=== PATIENT | female | born 1990 | race African-American/Black ===

== ENCOUNTER 2016-03-29 13:22 | Emergency (ER) | payer MEDICAID ==
[~2016-03-29 13:22] MED LIST: CEPH-460 PO; PRENATAL VITAMIN; PROM25TA5 PO
--- NOTE | 2016-03-29 14:28 | PD ---
HPI Chief Complaint Suprapubic pain and tenderness, pelvic pressure Date Seen: Mar 29, 2016 Time Seen: 14:10 Travel History International Travel<30 Days: No Contact w/Intl Traveler<30Days: No Known Affected Area: No History of Present Illness HPI 25-year-old 033 at 25 weeks and 5 days of gestation, EDC 07/07/16, patient presents to labor and delivery complaining of suprapubic pain and tenderness and pelvic pressure, she denies leakage of fluids, vaginal bleeding and contractions. She reports presence of movement. Patient also reports presence of vaginal discharge. Evaluation reveals presence of white cottage-cheese like discharge consistent with possible yeast infection. care is with Dr. Muhammad, course is unremarkable. Patient denies dysuria, reports increased frequency, no fever or chills , no nausea and vomiting. Para: 3 : 7 Miscarriage: 3 : 0 History Past Medical History Narrative Medical Denies Medical History: Denies Significant Hx Obstetric History Obstetric History Spontaneous vaginal delivery 3, spontaneous 3 Past Surgical History Narrative Surgical Denies Surgical History: No Previous Surgery Family History Narrative Family History Mother with kidney failure Social History Alcohol Use: No Tobacco Use: No Substance Abuse: No Allergies-Medications (Allergen,Severity, Reaction): Coded Allergies: No Known Allergies (Verified , 02/23/16) Home Meds Active Scripts Cephalexin (Keflex)500 Mg [id number] Mg PO Q6H #28 CAP Ref 0 Prov:Manuel Pearson II, MD 02/22/16 Promethazine (Phenergan)25 Mg Tab25 Mg PO Q6H PRN (NAUSEA OR VOMITING) #20 TAB Ref 0 Prov:Manuel Pearson II, MD 02/21/16 Reported Medications [ Vitamin] No Conflict Check Daily 01/19/16 Review of Systems Except as stated in HPI: all other systems reviewed are Neg Genitourinary: Frequency, Discharge, Other (suprapubic pain) Physical Exam Narrative GENERAL: Well-nourished, well-developed patient. SKIN: Warm and dry. HEAD: Normocephalic and atraumatic. EYES: No scleral icterus. No injection or drainage. ENT: No nasal drainage noted. Mucous membranes pink. Airway patent. NECK: Supple, trachea midline. No JVD. CARDIOVASCULAR: Regular rate and rhythm without murmurs, gallops, or rubs. RESPIRATORY: Breath sounds equal bilaterally. No accessory muscle use. BREASTS: Bilateral exam showed no masses , no retractions, no nipple discharge. ABDOMEN/GI: Abdomen soft, gravid, non-tender, bowel sounds present, no rebound, no guarding Gravid to 26weeks size Fundal Height: 26 cm GENITOURINARY: External Genitalia: intact and normal in appearance BUS glands: Normal Cervix: Closed, long, posterior, there is present of a whitish cottage cheese -like discharge, sample is sent for wet prep profile Dilatation: Close Effacement: 30% Station: -3 Presentation: Cephalic Membranes: Intact Uterine Contractions: None FHT's: Category: one Baseline: 150's Reactive: Reassuring Variability: Moderate Decels: None EXTREMITIES: No cyanosis or edema. BACK: Nontender without obvious deformity. No CVA tenderness. NEUROLOGICAL: Awake and alert. Motor and sensory grossly within normal limits. Five out of 5 muscle strength in all muscle groups. Normal speech. Data Data Vital Signs Reviewed: Yes Orders Vital Signs (Adult) .ON ADMISSION (03/29/16 14:14) ^ Labor Status (03/29/16 14:14) Urinalysis - C+S If Indicated (03/29/16 14:14) ^ Non Stress Test (03/29/16 14:14) ^ Hydration (03/29/16 14:14) Diet Regular Basic (03/29/16 Dinner) Wet Prep Profile (03/29/16 14:14) MDM Diagnosis Diagnosis: Primary Impression: 26 weeks gestation of Additional Impressions: UTI (lower urinary tract infection) Vaginal discharge during in second trimester Disposition: 01 DISCHARGE HOME Condition: Stable Additional Instructions: Urinalysis is suggestive of acute UTI, wet prep is positive for yeast infection. Patient is given ceftriaxone 2 g IV times one dose. She is discharged home with prescription for Macrobid 100 mg by mouth twice a day 7 days and miconazole vaginal suppositories 200 mg at bedtime 3 days for treatment of yeast infection. She is instructed to return to labor and delivery if increased symptoms, cramping, contractions, leakage of fluids, vaginal bleeding or decreased movement. Drink plenty of fluids. Monitor kick counts. Keep your office appointment as scheduled. Pelvic rest. Departure Forms: Tests/Procedures Sandro Moore MD Mar 29, 2016 14:28
[2016-03-29 14:33] LABS: BACTERIA, URINE MANY /hpf; BLOOD, URINE MOD (NEG); COMMENT (UR) CULTURE INDICATED; CULTURE IF INDICATED CULTURE INDICATED; GLUCOSE,URINE NEG (NEG); KETONE, URINE 10 mg/dL (NEG); MUCUS URINE MANY /lpf (OCC); NITRITE,URINE NEG (NEG); SQUAMOUS EPITHELIAL CELL URINE 5 /hpf (0-5); URINE COLOR YELLOW (YELLW/STRAW)
[2016-03-29] MEDS ORDERED: SODIUM CHLOR 0.9% 1000 ML INJ 1,000 ML IV SCH (17:00)
[2016-03-29] MEDS ORDERED: cefTRIAXone INJ 2,000 MG in SODIUM CHLORIDE 0.9% INJ 100 ML IV ONE (17:00)
== END 2016-03-29 18:06 | disposition home or self-care (01) ==
LOC: HOBED 13:22
DX: O23.42 Unspecified infection of urinary tract in pregnancy, second trimester (principal); B96.20 Unspecified Escherichia coli [E. coli] as the cause of diseases classified elsewhere; N89.8 Other specified noninflammatory disorders of vagina; Z3A.26 26 weeks gestation of pregnancy
CPT/HCPCS: 81001; 87077; 87086; 87186; 87210; 96361; 96374; 99284; J0696; J7030

== ENCOUNTER 2016-04-27 16:48 | Emergency (ER) | payer MEDICAID ==
[~2016-04-27] VITALS: Ht 175.3 cm; Wt 78.0 kg
[2016-04-27 16:53] VITALS: BP 94/61; PULSE 77; RESP 16; TEMP 98.2; O2SAT 100
[2016-04-27] MEDS ORDERED: SODIUM CHLOR 0.9% 1000 ML INJ 1,000 ML IV SCH (18:53)
[2016-04-27] MEDS ORDERED: ONDANSETRON HCL 4 MG/2 ML VIAL IVP ONE (19:00)
[2016-04-27] MEDS ORDERED: SODIUM CHLORIDE 0.9% FLUSH 5 ML FLUSH IVF PRN (19:00)
[2016-04-27 19:03] VITALS: PULSE 74; RESP 18; O2SAT 99
--- NOTE | 2016-04-27 19:19 | PD ---
HPI Chief Complaint: GI Complaint Time Seen by Provider: 19:16 Travel History International Travel<30 days: No Contact w/Intl Traveler<30days: No Traveled to known affect area: No History of Present Illness HPI The patient is a 25-year-old female who is 31 weeks and started vomiting today. She is G7, P3, A3all spontaneous abortions. She denies any diarrhea. She does have left flank pain and does have a tendency to get urinary tract infections with pregnancies. She states she normally does not get vomiting during her pregnancies. She denies any fever. She denies any abdominal pain. ON LICENSE OF [facility] Past Medical History Diminished Hearing: No Genitourinary: Yes (uti) Immunizations Current: Yes Tetanus Vaccination: < 5 Years Influenza Vaccination: Yes ?: LMP: 10/01/15 : 4 Para: 3 Miscarriage: 1 Social History Alcohol Use: No Tobacco Use: No Substance Use: No Allergies-Medications (Allergen,Severity, Reaction): Coded Allergies: No Known Allergies (Verified , 04/27/16) Reported Meds & Prescriptions Reported Meds & Active Scripts Active Zofran (Ondansetron HCl) 4 Mg Tab 4 Mg PO Q6HR PRN Macrobid (Nitrofurantoin Monoh/Nitrofur Macro) 100 Mg Cap 100 Mg PO BID 7 Days Reported [ Vitamin] DAILY Review of Systems Except as stated in HPI: all other systems reviewed are Neg Physical Exam Narrative GENERAL: The patient is alert, oriented 3 and slight apparent distress with her nausea. Her vital signs show blood pressure 94/61 but otherwise normal for . SKIN: Warm and dry. HEAD: Atraumatic. Normocephalic. EYES: Pupils equal and round. No scleral icterus. No injection or drainage. ENT: No nasal bleeding or discharge. Mucous membranes pink and moist. NECK: Trachea midline. No JVD. CARDIOVASCULAR: Regular rate and rhythm. No murmur appreciated. RESPIRATORY: No accessory muscle use. Clear to auscultation. Breath sounds equal bilaterally. GASTROINTESTINAL: Abdomen soft, non-tender, nondistended. Hepatic and splenic margins not palpable. No guarding or rebound is present. MUSCULOSKELETAL: No obvious deformities. No clubbing. No cyanosis. No edema. NEUROLOGICAL: Awake and alert. No obvious cranial nerve deficits. Motor grossly within normal limits. Normal speech. PSYCHIATRIC: Appropriate mood and affect; insight and judgment normal. Data Data Last Documented VS Vital Signs Date Time Temp Pulse Resp B/P Pulse Ox O2 Delivery O2 Flow Rate FiO2 04/27/16 20:05 72 18 114/66 100 Room Air 04/27/16 16:53 98.2 Orders Complete Blood Count With Diff (04/27/16 18:53) Comprehensive Metabolic Panel (04/27/16 18:53) Lipase (04/27/16 18:53) Urinalysis - C+S If Indicated (04/27/16 18:53) Iv Access Insert/Monitor (04/27/16 18:53) Ecg Monitoring (04/27/16 18:53) Oximetry (04/27/16 18:53) Ondansetron Inj (Zofran Inj) (04/27/16 19:00) Sodium Chlor 0.9% 1000 Ml Inj (Ns 1000 M (04/27/16 18:53) Sodium Chloride 0.9% Flush (Ns Flush) (04/27/16 19:00) Ondansetron Inj (Zofran Inj) (04/27/16 20:00) Sodium Chlor 0.9% 1000 Ml Inj (Ns 1000 M (04/27/16 20:00) Labs Laboratory Tests Test 04/27/16 19:25 White Blood Count 8.4 TH/MM3 Red Blood Count 3.62 MIL/MM3 Hemoglobin 9.3 GM/DL Hematocrit 29.2 % Mean Corpuscular Volume 80.8 FL Mean Corpuscular Hemoglobin 25.6 PG Mean Corpuscular Hemoglobin 31.7 % Concent Red Cell Distribution Width 13.2 % Platelet Count 192 TH/MM3 Mean Platelet Volume 8.8 FL Neutrophils (%) (Auto) 62.4 % Lymphocytes (%) (Auto) 26.7 % Monocytes (%) (Auto) 9.1 % Eosinophils (%) (Auto) 1.6 % Basophils (%) (Auto) 0.2 % Neutrophils # (Auto) 5.3 TH/MM3 Lymphocytes # (Auto) 2.2 TH/MM3 Monocytes # (Auto) 0.8 TH/MM3 Eosinophils # (Auto) 0.1 TH/MM3 Basophils # (Auto) 0.0 TH/MM3 CBC Comment DIFF FINAL Differential Comment Urine Color YELLOW Urine Turbidity SLIGHT Urine pH 6.5 Urine Specific [place] 1.023 Urine Protein TRACE mg/dL Urine Glucose (UA) NEG mg/dL Urine Ketones TRACE mg/dL Urine Occult Blood NEG Urine Nitrite NEG Urine Bilirubin NEG Urine Leukocyte Esterase TRACE Urine RBC 0-2 /hpf Urine WBC 3-5 /hpf Urine Squamous Epithelial 6-8 /hpf Cells Urine Amorphous Sediment MOD Urine Bacteria RARE /hpf Microscopic Urinalysis Comment CULT NOT INDICATED Sodium Level 140 MEQ/L Potassium Level 3.8 MEQ/L Chloride Level 106 MEQ/L Carbon Dioxide Level 28.3 MEQ/L Anion Gap 6 MEQ/L Blood Urea Nitrogen 7 MG/DL Creatinine 0.57 MG/DL Estimat Glomerular Filtration 158 ML/MIN Rate Random Glucose 84 MG/DL Calcium Level 8.5 MG/DL Total Bilirubin 0.3 MG/DL Aspartate Amino Transf 11 U/L (AST/SGOT) Alanine Aminotransferase 9 U/L (ALT/SGPT) Alkaline Phosphatase 76 U/L Total Protein 6.8 GM/DL Albumin 2.6 GM/DL Lipase 107 U/L MDM Medical Decision Making Medical Screen Exam Complete: Yes Emergency Medical Condition: Yes Medical Record Reviewed: Yes Interpretation(s) The CBC shows a hemoglobin of 9.3 and hematocrit of 29.2 but is otherwise unremarkable. The complete metabolic profile shows an albumin of 2.6 but is otherwise normal. The lipase is normal. The urine shows specific gravity 1.0-3 , slight turbidity, trace ketones, trace leukocyte esterase with 3-5 white cells and rare bacteria in the urine and culture is not indicated. Differential Diagnosis Gastroenteritis, hyperemesis gravidarum, dehydration, electrolyte disorder, pyelonephritis, cystitis Narrative Course The patient has hyperemesis gravidarum. She states she often gets morning sickness with her pregnancies but never lasting into the day. She may still have a urinary infection, she has borderline on the number of white cells needed to diagnose a urine infection, 3-5. She does have a trace positive leukocyte esterase. Impression: Hyperemesis gravidarum versus pyelonephritis. Plan: The patient be put on Macrobid for 7 days, increase liquids and is given Zofran for nausea. She is to follow-up with her manager strategy & account next week. Diagnosis Primary Impression: Pyelonephritis Additional Impression: Hyperemesis gravidarum Additional Instructions: As we discussed, increase liquid intake to make sure you are well-hydrated. The antibiotic is one tablet twice daily for 7 days. Zofran is for nausea and it is one tablet every 6 hours as needed for nausea. Follow-up with your manager strategy & account next week. Med/Other Pt SpecificInfo: Prescription(s) given Scripts Ondansetron (Zofran)4 Mg Tab4 Mg PO Q6HR PRN (NAUSEA OR VOMITING) #28 TAB Ref 0 Prov:Luis M Erazo MD 04/27/16 Nitrofurantoin Monohydrate Macrocrystals (Macrobid)100 Mg [id number] Mg PO BID 7 Days Ref 0 Prov:Luis M Erazo MD 04/27/16 Disposition: 01 DISCHARGE HOME Condition: Stable Luis M Erazo MD Apr 27, 2016 19:19
[2016-04-27 19:35] LABS: AUTOMATED NEUTROPHIL # 5.3 TH/MM3 (1.8-7.7); BASOPHIL % 0.2 % (0.0-2.0); BLOOD, URINE NEG (NEG); EOSINOPHIL # 0.1 TH/MM3 (0-0.4); EOSINOPHIL % 1.6 % (0.0-4.0); GLUCOSE,URINE NEG (NEG); HEMATOCRIT 29.2 % (35.0-46.0); HEMO FLAGS DIFF FINAL; KETONE, URINE TRACE mg/dL (NEG); LYMPH % 26.7 % (9.0-44.0); LYMPHOCYTE # 2.2 TH/MM3 (1.0-4.8); MEAN CELL VOLUME 80.8 FL (80.0-100.0); MEAN CORPUSCULAR HEMOGLOBIN 25.6 PG (27.0-34.0); MEAN CORPUSCULAR HGB CONC 31.7 % (32.0-36.0); MONO % 9.1 % (0.0-8.0); NEUT % 62.4 % (16.0-70.0); NITRITE,URINE NEG (NEG); PH, URINE 6.5 (5.0-8.5); PLATELET COUNT 192 TH/MM3 (150-450); RED BLOOD COUNT 3.62 MIL/MM3 (4.00-5.30); RED CELL DISTRIBUTION WIDTH 13.2 % (11.6-17.2); WHITE BLOOD COUNT 8.4 TH/MM3 (4.0-11.0)
[2016-04-27 19:40] LABS: CHLORIDE 106 MEQ/L (98-107); POTASSIUM 3.8 MEQ/L (3.5-5.1); SODIUM (NA) 140 MEQ/L (136-145)
[2016-04-27 19:41] LABS: URINE COLOR YELLOW (YELLW/STRAW)
[2016-04-27 19:42] LABS: BACTERIA, URINE RARE /hpf; COMMENT (UR) CULT NOT INDICATED; CULTURE IF INDICATED CULT NOT INDICATED; RBC, URINE 0-2 /hpf (0-3)
[2016-04-27 19:44] LABS: ANION GAP 6 MEQ/L (5-15); BICARBONATE 28.3 MEQ/L (21.0-32.0); BLOOD UREA NITROGEN 7 MG/DL (7-18)
[2016-04-27 19:47] LABS: ALT (GPT) 9 U/L (10-53); AST (GOT) 11 U/L (15-37); GLOMERULAR FILTRATION RATE 158 ML/MIN (>89)
[2016-04-27 19:49] LABS: TOTAL BILIRUBIN ADULT 0.3 MG/DL (0.2-1.0)
[2016-04-27 19:50] LABS: ALKALINE PHOSPHATASE 76 U/L (45-117)
[2016-04-27] MEDS ORDERED: ONDANSETRON HCL 4 MG/2 ML VIAL IV ONE (20:00)
[2016-04-27 20:05] VITALS: BP 114/66; PULSE 72; RESP 18; O2SAT 100
[2016-04-27] MEDS ORDERED: MACR100C2 PO (20:07)
[2016-04-27] MEDS ORDERED: ZOFR4TAB PO (20:07)
[2016-04-27] MEDS: SODIUM CHLOR 0.9% 1000 ML INJ 1,000 ML IV SCH ×2 (20:08→20:27)
== END 2016-04-27 20:44 | disposition home or self-care (01) ==
LOC: PHED 16:48
DX: N12 Tubulo-interstitial nephritis, not specified as acute or chronic (principal); O21.0 Mild hyperemesis gravidarum; Z3A.31 31 weeks gestation of pregnancy
CPT/HCPCS: 80053; 81001; 83690; 85025; 96361; 96374; 96376; 99284; J2405; J7030

== ENCOUNTER 2016-05-24 16:00 | Emergency (ER) | payer MEDICAID ==
[~2016-05-24 16:00] MED LIST changes: -CEPH-460 PO; +MACR100C2 PO; -PROM25TA5 PO; +ZOFR4TAB PO
[2016-05-24 16:18] VITALS: BP 127/65; PULSE 78
[2016-05-24] MEDS ORDERED: LACTATED RINGER'S 1000 ML INJ 1,000 ML IV SCH (16:36)
[2016-05-24] MEDS: DEXT 5%-NACL 0.45% 1000 ML INJ 1,000 ML IV SCH ×2 (17:00→19:22)
[2016-05-24] MEDS ORDERED: NIFEdipine 10 MG CAP PO SCH (17:00)
[2016-05-24] MEDS ORDERED: ACETAMINOPHEN 325 MG TAB PO ONE (17:00)
[2016-05-24 17:39] LABS: HEMATOCRIT 33.1 % (35.0-46.0); MEAN CELL VOLUME 77.9 FL (80.0-100.0); MEAN CORPUSCULAR HEMOGLOBIN 25.9 PG (27.0-34.0); MEAN CORPUSCULAR HGB CONC 33.2 % (32.0-36.0); PLATELET COUNT 180 TH/MM3 (150-450); RED BLOOD COUNT 4.24 MIL/MM3 (4.00-5.30); RED CELL DISTRIBUTION WIDTH 14.3 % (11.6-17.2); REVIEW FLAG FINAL
[2016-05-24 17:57] LABS: BICARBONATE 24.3 MEQ/L (21.0-32.0); POTASSIUM 3.5 MEQ/L (3.5-5.1)
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
[2016-05-24 19:37] LABS: KLEIHAUER BETKE (FETAL HGB) 0.5 % (0.0-0.0)
== END 2016-05-24 21:14 | disposition home or self-care (01) ==
LOC: HOBED 16:00
DX: O26.893 Other specified pregnancy related conditions, third trimester (principal); R10.9 Unspecified abdominal pain; V43.62XA Car passenger injured in collision with other type car in traffic accident, initial encounter; Y93.9 Activity, unspecified; Y92.9 Unspecified place or not applicable; Y99.9 Unspecified external cause status
CPT/HCPCS: 59025; 76816; 76819; 80048; 82731; 83030; 85027; 86850; 86900; 86901; 96361; 96374; 96376; 99284; J3010

== ENCOUNTER 2016-05-25 21:38 | Emergency (ER) | payer MEDICAID ==
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
== END 2016-05-25 22:39 | disposition home or self-care (01) ==
LOC: HOBED 21:38
DX: O26.893 Other specified pregnancy related conditions, third trimester (principal); R10.2 Pelvic and perineal pain; Z3A.35 35 weeks gestation of pregnancy
CPT/HCPCS: 99284

== ENCOUNTER 2016-05-27 23:14 | Inpatient (IN) | payer MEDICAID ==
[2016-05-27] MEDS ORDERED: LACTATED RINGER'S 1000 ML INJ 1,000 ML IV SCH (23:54)
[2016-05-27] MEDS ORDERED: LACTATED RINGER'S 1000 ML INJ 1,000 ML IV PRN (23:54)
--- NOTE | 2016-05-27 23:54 | PD ---
HPI Chief Complaint Contractions Date Seen: May 27, 2016 Travel History International Travel<30 Days: No Contact w/Intl Traveler<30Days: No Known Affected Area: No History of Present Illness HPI at 35w 2d presents with c/o contractions. Patient reports contractions as irregular. Denies LOF/VB. Good FM. Reports previous history of PTL with deliveries. Para: 3 : 7 Last Menstrual Period: May 27, 2016 History Past Medical History Medical History: Denies Significant Hx Past Surgical History Surgical History: No Previous Surgery Family History Family History: Negative Social History Alcohol Use: No Tobacco Use: No Substance Abuse: No Allergies-Medications (Allergen,Severity, Reaction): Coded Allergies: No Known Allergies (Verified , 04/27/16) Home Meds Active Scripts Ondansetron (Zofran)4 Mg Tab4 Mg PO Q6HR PRN (NAUSEA OR VOMITING) #28 TAB Ref 0 Prov:Luis M Erazo MD 04/27/16 Nitrofurantoin Monohydrate Macrocrystals (Macrobid)100 Mg [id number] Mg PO BID 7 Days Ref 0 Prov:Luis M Erazo MD 04/27/16 Reported Medications [ Vitamin] No Conflict Check Daily 01/19/16 Physical Exam AFVSS Narrative GENERAL: Well-nourished, well-developed patient. SKIN: Warm and dry. HEAD: Normocephalic and atraumatic. EYES: No scleral icterus. No injection or drainage. ENT: No nasal drainage noted. Mucous membranes pink. Airway patent. NECK: Supple, trachea midline. No JVD. CARDIOVASCULAR: Regular rate and rhythm without murmurs, gallops, or rubs. RESPIRATORY: Breath sounds equal bilaterally. No accessory muscle use. BREASTS: Bilateral exam showed no masses , no retractions, no nipple discharge. ABDOMEN/GI: Abdomen soft, non-tender, bowel sounds present, no rebound, no guarding Gravid to [-] weeks size Fundal Height: [-] GENITOURINARY: External Genitalia: intact and normal in appearance BUS glands: [-] Cervix: [-] Dilatation: [4] Effacement: [80] Station: [2] Presentation: [-] Membranes: [intact or ruptured] Uterine Contractions: [irregular contractions] FHT's: Category: [1] Baseline: [140s] Reactive: [-] Variability: [moderate] Decels: [occasional variable] EXTREMITIES: No cyanosis or edema. BACK: Nontender without obvious deformity. No CVA tenderness. NEUROLOGICAL: Awake and alert. Motor and sensory grossly within normal limits. Five out of 5 muscle strength in all muscle groups. Normal speech. Data Data Orders Ob (2e) Additional Admit Info (05/27/16 23:42) [facility] Medical Record Reviewed: Yes Interpretation(s) at 35w 2d, active labor. Plan Will admit. GBS prophylaxis. Will notify Dr. De Dios. Diagnosis Diagnosis: Primary Impression: 35 weeks gestation of Additional Impressions: Irregular uterine contractions GBS (group B Streptococcus carrier), +RV culture, currently Deanna Chambers MD May 27, 2016 23:54
[2016-05-28] VITALS (16 sets, daily range): BP systolic 102–134; BP diastolic 58–84; PULSE 64–102; RESP 16–22; TEMP 97.5–98.5
[2016-05-28] MEDS ORDERED: CITRIC ACID-SODIUM CITRATE LIQ 30 ML UDC PO SCH
[2016-05-28] MEDS ORDERED: LIDOCAINE HCL 1% 50 ML VIAL I-DERMAL PRN
[2016-05-28] MEDS ORDERED: OXYTOCIN 30 UNITS-500ML PREMIX 500 ML IV ONE
[2016-05-28] MEDS ORDERED: MINERAL OIL 10 ML VIAL TOPICAL PRN
[2016-05-28] MEDS ORDERED: SODIUM CHLORID 0.9% 500 ML INJ 500 ML IV PRN
[2016-05-28] MEDS ORDERED: PENICILLIN G POTASSIUM INJ 5,000,000 UNITS in SODIUM CHLORIDE 0.9% INJ 100 ML IV ONE ×2
[2016-05-28] MEDS ORDERED: LIDOCAINE HCL 1% 50 ML VIAL INFIL PRN
[2016-05-28] MEDS ORDERED: SODIUM CHLOR 0.9% 1000 ML INJ 1,000 ML IV PRN (00:14)
[2016-05-28 00:25] LABS: AUTOMATED NEUTROPHIL # 6.5 TH/MM3 (1.8-7.7); BASOPHIL % 0.3 % (0.0-2.0); EOSINOPHIL # 0.1 TH/MM3 (0-0.4); EOSINOPHIL % 1.3 % (0.0-4.0); HEMO FLAGS DIFF FINAL; LYMPH % 22.8 % (9.0-44.0); LYMPHOCYTE # 2.2 TH/MM3 (1.0-4.8); MEAN CELL VOLUME 78.1 FL (80.0-100.0); MEAN CORPUSCULAR HEMOGLOBIN 25.6 PG (27.0-34.0); MEAN CORPUSCULAR HGB CONC 32.9 % (32.0-36.0); MONO % 7.6 % (0.0-8.0); PLATELET COUNT 174 TH/MM3 (150-450); RED BLOOD COUNT 3.72 MIL/MM3 (4.00-5.30); WHITE BLOOD COUNT 9.6 TH/MM3 (4.0-11.0)
[2016-05-28 00:38] LABS: AMPHETAMINE, URINE NEG (NEG); BARBITURATES, URINE NEG (NEG); COCAINE, URINE NEG (NEG)
[2016-05-28 00:39] LABS: BACTERIA, URINE RARE /hpf; BLOOD, URINE SMALL (NEG); GLUCOSE,URINE NEG (NEG); KETONE, URINE 40 mg/dL (NEG); MUCUS URINE FEW /lpf (OCC); NITRITE,URINE NEG (NEG); PH, URINE 6.5 (5.0-8.5); SQUAMOUS EPITHELIAL CELL URINE 13 /hpf (0-5); TRANSITIONAL EPI CELLS, URINE <1 /hpf; URINE COLOR YELLOW (YELLW/STRAW)
[2016-05-28 00:41] LABS: COMMENT (UR) CULTURE INDICATED; CULTURE IF INDICATED CULTURE INDICATED
--- NOTE | 2016-05-28 02:48 | PD.OB.DELI ---
Delivery Date: May 28, 2016 Anesthesia: None Episiotomy: None Vaginal Delivery: Normal, Spontaneous Presentation: Occiput anterior Nuchal Cord: None Delayed cord clamping (45 sec): Yes : Female, Single One Minute : 8 Five Minute : 9 Weight: 5# 2 oz Infant Care: Suctioned, Spontaneous crying, Responded to stimulation Placenta: Spontaneous delivery, Intact, 3 vessel cord Laceration: No lacerations Anthony De Dios MD May 28, 2016 02:47
--- NOTE | 2016-05-28 02:54 | HHI.DCPOC ---
Discharge Care Plan Diagnosis: (1) Spontaneous vaginal delivery Report Symptoms to Your Doctor -Temperate above 100.5 degrees -Redness, of incision or excessive or foul smelling drainage -Unusual pain or calf pain -Increased vaginal bleeding -Painful or difficulty urinating -Feelings of extreme sadness or anxiety after 2 weeks Goals to Promote Your Health * To prevent worsening of your condition and complications * To maintain your health at the optimal level Directions to Meet Your Goals Take your medications as prescribed Follow your dietary instruction Follow activity as directed Ensure plenty of rest for recovery Drink fluids for hydration Keep your appointments as scheduled Take your immunizations and boosters as scheduled If your symptoms worsen call your PCP, if no PCP go to Urgent Care Center or Emergency Room Smoking is Dangerous to Your Health. Avoid second hand smoke Call the 24-hour crisis hotline for domestic abuse at Anthony De Dios MD May 28, 2016 02:54
[2016-05-28] MEDS ORDERED: DOCUSATE SODIUM 50 MG/SENNA 8.6 MG TAB PO PRN (03:00)
[2016-05-28] MEDS ORDERED: SODIUM CHLORIDE 0.9% FLUSH 5 ML FLUSH IV PRN (03:00)
[2016-05-28] MEDS ORDERED: ACETAMINOPHEN 325 MG TAB PO PRN (03:00)
[2016-05-28] MEDS ORDERED: ALUMINUM/MAGNESIUM/SIMETH 30 ML CUP PO PRN (03:00)
[2016-05-28] MEDS ORDERED: ZOLPIDEM TARTRATE 5 MG TAB PO PRN (03:00)
[2016-05-28] MEDS ORDERED: oxyCODONE/ACETAMINOPHEN 5 MG/325 MG TAB PO PRN ×2 (03:00)
[2016-05-28] MEDS ORDERED: ONDANSETRON ODT 4 MG TAB PO PRN (03:00)
[2016-05-28] MEDS ORDERED: WITCH HAZEL 50%/GLYCERIN 12.5% 40 PAD JAR TOPICAL PRN (03:00)
[2016-05-28] MEDS ORDERED: BENZOCAINE 20% TOPICAL SPRAY 60 ML CAN TOPICAL PRN (03:00)
[2016-05-28] MEDS: IBUPROFEN 600 MG TAB PO PRN ×3 (03:33→23:50)
[2016-05-28] MEDS ORDERED: PENICILLIN G POTASSIUM INJ 2,500,000 UNITS in SODIUM CHLORIDE 0.9% INJ 100 ML IV SCH (04:00)
[2016-05-28] MEDS ORDERED: SODIUM CHLORIDE 0.9% FLUSH 5 ML FLUSH IV SCH (09:00)
--- NOTE | 2016-05-28 09:13 | HHI.OB ---
Subjective Remarks pain controlled, mod lochia, bianka po, +void/flatus Objective Vitals/I&O Vital Signs Date Time Temp Pulse Resp B/P Pulse Ox O2 Delivery O2 Flow Rate FiO2 05/28/16 08:05 102/58 05/28/16 08:05 97.5 64 16 05/28/16 08:00 97.5 16 102/58 05/28/16 04:45 69 116/71 05/28/16 04:45 98.1 22 05/28/16 04:16 70 126/84 05/28/16 04:15 18 05/28/16 04:00 70 118/75 05/28/16 03:47 73 123/72 05/28/16 03:45 18 05/28/16 03:43 70 121/80 05/28/16 03:15 98.5 05/28/16 03:00 20 05/28/16 02:15 20 05/28/16 02:02 102 134/64 05/28/16 01:15 20 05/28/16 00:25 18 05/28/16 00:16 71 128/74 Objective Remarks GENERAL: Well-nourished, well-developed patient. CARDIOVASCULAR: Regular rate and rhythm without murmurs, gallops, or rubs. RESPIRATORY: Breath sounds equal bilaterally. No accessory muscle use. ABDOMEN/GI: Abdomen soft, non-tender. Fundus: Firm, non-tender at umbilicus. GENITOURINARY: Light to moderate bleeding. EXTREMITIES: No cyanosis or edema, non-tender, without signs of DVT. Medications and IVs Current Medications Medications (Trade) Dose Ordered Sig/Pedro Route Start Time Stop Time Status Last Admin (NS Flush) 2 ml BID IV 05/28/16 09:00 (NS Flush) 2 ml UNSCH PRN IV 05/28/16 03:00 (Tylenol) 650 mg Q4H PRN PO 05/28/16 03:00 (Motrin) 600 mg Q6H PRN PO 05/28/16 03:00 05/28/16 03:33 (Percocet 5-325 Mg) 1 tab Q4H PRN PO 05/28/16 03:00 (Percocet 5-325 Mg) 2 tab Q4H PRN PO 05/28/16 03:00 05/28/16 04:46 (Americaine 20% Top Spr) 1 spray Q4H PRN TOPICAL 05/28/16 03:00 05/28/16 04:45 (Tucks Pads) 1 applic QID PRN TOPICAL 05/28/16 03:00 05/28/16 04:45 (Leslie-Colace) 2 tab Q12H PRN PO 05/28/16 03:00 (Ambien) 5 mg HS PRN PO 05/28/16 03:00 (M-M-R Ii Inj) 0.5 ml ONCE ONCE SQ 05/28/16 16:00 05/28/16 16:01 (Boostrix Inj) 0.5 ml ONCE ONCE IM 05/28/16 16:00 05/28/16 16:01 (Mag-Al Plus Susp Liq) 15 ml Q8H PRN PO 05/28/16 03:00 (Zofran Odt) 4 mg Q6H PRN PO 05/28/16 03:00 Assessment/Plan Problem List: (1) Spontaneous vaginal delivery Plan: routine pp care baby in NICU Suzi Muhammad MD May 28, 2016 09:13
[2016-05-28 13:55] LABS: RAPID PLASMA REAGIN SCREEN NON-REACTIVE (NON-REACTVE)
[2016-05-28] MEDS ORDERED: DIPHTH/TETANUS/ACEL PERTUSSIS (BOOSTER) 0.5 ML VIAL/PFS IM ONE (16:00)
[2016-05-28] MEDS ORDERED: MEASLES, MUMPS, RUBELLA VACCINE 0.5 ML VIAL SQ ONE (16:00)
[2016-05-29] MEDS: IBUPROFEN 600 MG TAB PO PRN ×2 (08:55→23:33)
[2016-05-29] MEDS ORDERED: OXYC1TAB63 PO (16:48)
[2016-05-29] MEDS ORDERED: IBUP-232 PO (16:48)
--- NOTE | 2016-05-29 16:51 | HHI.DS ---
Admission Date May 27, 2016 at 23:45 Discharge Date: May 30, 2016 Admitting Diagnosis IUP@35+wk, Labor Diagnosis: Delivery Date: May 28, 2016 Vaginal Delivery: Normal : Female, Single Brief History at 35w 2d presents with c/o contractions. Patient reports contractions as irregular. Denies LOF/VB. Good FM. Reports previous history of PTL with deliveries. Hospital Course pt presented in PTL, she had an uncomplicated . By PPD 2, pt was voiding and bianka po and stable for d/c home. Pt Condition on Discharge: Stable Discharge Disposition: Discharge Home Discharge Instructions Diet Instructions: As Tolerated, No Restrictions Activities You Can Perform: Shower Only-No Bath Activities to Avoid: Prolonged Standing, Strenuous Activity, Driving, Sexual Activity Suzi Muhammad MD May 29, 2016 16:51
--- NOTE | 2016-05-29 16:52 | HHI.OB ---
Subjective Post Day: 1 Remarks pain controlled, mod lochia, bianka po, +void, flatus Objective Objective Remarks GENERAL: Well-nourished, well-developed patient. CARDIOVASCULAR: Regular rate and rhythm without murmurs, gallops, or rubs. RESPIRATORY: Breath sounds equal bilaterally. No accessory muscle use. ABDOMEN/GI: Abdomen soft, non-tender. Fundus: Firm, non-tender at umbilicus. GENITOURINARY: Light to moderate bleeding. EXTREMITIES: No cyanosis or edema, non-tender, without signs of DVT. Medications and IVs Current Medications Medications (Trade) Dose Ordered Sig/Pedro Route Start Time Stop Time Status Last Admin (NS Flush) 2 ml BID IV 05/28/16 09:00 (NS Flush) 2 ml UNSCH PRN IV 05/28/16 03:00 (Tylenol) 650 mg Q4H PRN PO 05/28/16 03:00 05/29/16 10:47 (Motrin) 600 mg Q6H PRN PO 05/28/16 03:00 05/29/16 08:55 (Percocet 5-325 Mg) 1 tab Q4H PRN PO 05/28/16 03:00 05/28/16 12:17 (Percocet 5-325 Mg) 2 tab Q4H PRN PO 05/28/16 03:00 05/28/16 04:46 (Americaine 20% Top Spr) 1 spray Q4H PRN TOPICAL 05/28/16 03:00 05/28/16 04:45 (Tucks Pads) 1 applic QID PRN TOPICAL 05/28/16 03:00 05/28/16 04:45 (Leslie-Colace) 2 tab Q12H PRN PO 05/28/16 03:00 (Ambien) 5 mg HS PRN PO 05/28/16 03:00 (Mag-Al Plus Susp Liq) 15 ml Q8H PRN PO 05/28/16 03:00 (Zofran Odt) 4 mg Q6H PRN PO 05/28/16 03:00 Assessment/Plan Problem List: (1) Spontaneous vaginal delivery Plan: routine pp care d/c home in Suzi Bro MD May 29, 2016 16:52
[2016-05-30] MEDS: IBUPROFEN 600 MG TAB PO PRN (08:13)
[2016-05-31 14:03] LABS: BATH SALTS (MDPV) UR NEG (NEG); ECSTASY (MDMA) UR NEG (NEG); HEROIN (6-ACETYLMORPHINE) UR NEG (NEG); K2 SPICE UR NEG (NEG); OBMETHADONE UR NEG (NEG); PHENCYCLIDINE URINE NEG (NEG)
[2016-05-31 14:04] LABS: OXYCODONE (PERCODAN) NEG (NEG)
== END 2016-05-30 11:58 | disposition home or self-care (01) | DRG 775 ==
LOC: HOBED 23:14 → H2EA 23:45 → H1EA 05-28 04:29
PROVIDERS: ADMIT Obstetrics & Gynecology; ATTEND Obstetrics & Gynecology
PROC: 10E0XZZ Delivery of Products of Conception, External Approach (ICD-10-PCS; principal; 2016-05-28)
DX: O60.14X0 Preterm labor third trimester with preterm delivery third trimester, not applicable or unspecified (principal); O76 Abnormality in fetal heart rate and rhythm complicating labor and delivery; O99.824 Streptococcus B carrier state complicating childbirth; Z37.0 Single live birth; Z3A.35 35 weeks gestation of pregnancy
CPT/HCPCS: 80307; 81001; 85025; 86592; 87086; 90715; 99285; G0481; J2540; J7120

== ENCOUNTER 2016-08-16 07:56 | Emergency (ER) | payer MEDICAID ==
[~2016-08-16] VITALS: Ht 175.3 cm; Wt 72.0 kg
[~2016-08-16 07:56] MED LIST changes: +IBUP-232 PO; -MACR100C2 PO; +OXYC1TAB63 PO; -ZOFR4TAB PO
[2016-08-16 07:59] VITALS: BP 106/58; PULSE 78; RESP 15; TEMP 98.2; O2SAT 99
[2016-08-16 08:15] VITALS: BP 118/64; PULSE 61; RESP 18; TEMP 98.2; O2SAT 100
[2016-08-16 08:31] VITALS: BP 118/64; PULSE 61; RESP 18; TEMP 98.3; O2SAT 100
[2016-08-16 09:00] LABS: AUTOMATED NEUTROPHIL # 2.7 TH/MM3 (1.8-7.7); BASOPHIL % 0.3 % (0.0-2.0); EOSINOPHIL # 0.1 TH/MM3 (0-0.4); EOSINOPHIL % 2.2 % (0.0-4.0); HEMATOCRIT 31.3 % (35.0-46.0); HEMO FLAGS DIFF FINAL; LYMPH % 32.6 % (9.0-44.0); LYMPHOCYTE # 1.6 TH/MM3 (1.0-4.8); MEAN CELL VOLUME 73.6 FL (80.0-100.0); MEAN CORPUSCULAR HEMOGLOBIN 22.5 PG (27.0-34.0); MEAN CORPUSCULAR HGB CONC 30.5 % (32.0-36.0); MONO % 10.6 % (0.0-8.0); NEUT % 54.3 % (16.0-70.0); PLATELET COUNT 208 TH/MM3 (150-450); RED BLOOD COUNT 4.25 MIL/MM3 (4.00-5.30); RED CELL DISTRIBUTION WIDTH 16.4 % (11.6-17.2)
[2016-08-16 09:06] LABS: BACTERIA, URINE OCC /hpf; BLOOD, URINE NEG (NEG); COMMENT (UR) CULT NOT INDICATED; CULTURE IF INDICATED CULT NOT INDICATED; GLUCOSE,URINE NEG (NEG); HYALINE CAST, URINE 4 /lpf (RARE); KETONE, URINE NEG (NEG); MUCUS URINE MOD /lpf (OCC); NITRITE,URINE NEG (NEG); PH, URINE 5.5 (5.0-8.5); SQUAMOUS EPITHELIAL CELL URINE 7 /hpf (0-5); URINE COLOR YELLOW (YELLW/STRAW)
[2016-08-16 09:25] LABS: ANION GAP 6 MEQ/L (5-15); BICARBONATE 23.8 MEQ/L (21.0-32.0); BLOOD UREA NITROGEN 10 MG/DL (7-18); CHLORIDE 110 MEQ/L (98-107); GLOMERULAR FILTRATION RATE 106 ML/MIN (>89); POTASSIUM 3.6 MEQ/L (3.5-5.1); SODIUM (NA) 140 MEQ/L (136-145)
[2016-08-16 09:30] LABS: CREATINE KINASE 116 U/L (26-192)
[2016-08-16 09:43] LABS: CKMB 0.7 NG/ML (0.5-3.6)
--- NOTE | 2016-08-16 09:50 | RADRPT ---
EXAM DATE/TIME: 08/16/2016 08:40 [place] COMPARISON: No previous studies available for comparison. INDICATIONS : Chest pain for 2 days. MEDICAL HISTORY : None. SURGICAL HISTORY : None. ENCOUNTER: Initial ACUITY: 2 days PAIN SCORE: 7/10 LOCATION: Bilateral chest FINDINGS: Portable AP view of the chest demonstrates a normal-sized cardiac silhouette. No effusion, consolidat ion, or pneumothorax is visualized. The bones and soft tissues demonstrate no acute abnormality. CONCLUSION: No acute cardiopulmonary abnormality is identified. Anthony Low MD on August 16, 2016 at 9:42 Board Certified Radiologist. This report was verified electronically.
[2016-08-16 09:59] VITALS: BP 105/58; PULSE 56; RESP 18; O2SAT 100
--- NOTE | 2016-08-16 10:54 | PD ---
HPI Chief Complaint: Chest Pain Time Seen by Provider: 10:36 Travel History International Travel<30 days: No Contact w/Intl Traveler<30days: No Traveled to known affect area: No History of Present Illness HPI The patient was seen and examined in the presence of the nurse. This patient complains of chest pain. Location is upper central chest. Feels like a pressure. Duration 2 days. No injury. No alleviating factors. Not short of breath. Symptoms severity is moderate. PFSH Past Medical History Medical History: Denies Significant Hx Diminished Hearing: No Genitourinary: Yes (uti) Immunizations Current: Yes ?: Unknown LMP: 07/25/2016 : 4 Para: 3 Miscarriage: 1 Past Surgical History Surgical History: No Previous Surgery Social History Alcohol Use: No Tobacco Use: No Substance Use: No Allergies-Medications (Allergen,Severity, Reaction): Coded Allergies: No Known Allergies (Verified , 08/16/16) Reported Meds & Prescriptions Reported Meds & Active Scripts Active Oxycodone-Acetaminophen 5-325 mg Tab 1 Tab PO Q4H PRN Ibuprofen 600 Mg Tab 600 Mg PO Q6H PRN Reported [ Vitamin] DAILY Review of Systems General / Constitutional: No: Fever Eyes: No: Visual changes HENT: No: Headaches Cardiovascular: Positive: Chest Pain or Discomfort Respiratory: No: Shortness of Breath Gastrointestinal: No: Abdominal Pain Genitourinary: No: Dysuria Musculoskeletal: No: Pain Skin: No Rash Neurologic: No: Weakness Psychiatric: No: Depression Endocrine: No: Polydipsia Hematologic/Lymphatic: No: Easy Bruising Physical Exam Narrative GENERAL: Well-nourished, well-developed patient in no apparent distress. SKIN: Focused skin assessment reveals no rash and nodules. Skin is Warm and dry. HEAD: Atraumatic. Normocephalic. EYES: Pupils equal and round. No scleral icterus. No injection or drainage. ENT: No nasal bleeding or discharge. Mucous membranes pink and moist. NECK: Trachea midline. No JVD. CARDIOVASCULAR: Regular rate and rhythm. No murmur appreciated. RESPIRATORY: No accessory muscle use. Clear to auscultation. Breath sounds equal bilaterally. GASTROINTESTINAL: Abdomen soft, non-tender, nondistended. Hepatic and splenic margins not palpable. MUSCULOSKELETAL: No obvious deformities. No clubbing. No cyanosis. No edema. Has chest wall tenderness NEUROLOGICAL: Awake and alert. No obvious cranial nerve deficits. Motor grossly within normal limits. Normal speech. PSYCHIATRIC: Appropriate mood and affect; insight and judgment normal. Data Data Last Documented VS Vital Signs Date Time Temp Pulse Resp B/P Pulse Ox O2 Delivery O2 Flow Rate FiO2 08/16/16 09:59 56 18 105/58 100 Room Air 08/16/16 08:31 98.3 Orders Electrocardiogram (08/16/16 08:27) Complete Blood Count With Diff (08/16/16 08:27) Basic Metabolic Panel (Bmp) (08/16/16 08:27) Ckmb (Isoenzyme) Profile (08/16/16 08:27) Troponin I (08/16/16 08:27) Chest, Single Ap (08/16/16 08:27) Iv Access Insert/Monitor (08/16/16 08:27) Ecg Monitoring (08/16/16 08:27) Oxygen Administration (08/16/16 08:27) Oximetry (08/16/16 08:27) Urinalysis - C+S If Indicated (08/16/16 08:27) Ed Urine Pregnancytest Poc (08/16/16 08:27) CKMB (08/16/16 08:25) CKMB% (08/16/16 08:25) Labs Laboratory Tests Test 08/16/16 08/16/16 08:25 08:40 White Blood Count 5.0 TH/MM3 Red Blood Count 4.25 MIL/MM3 Hemoglobin 9.6 GM/DL Hematocrit 31.3 % Mean Corpuscular Volume 73.6 FL Mean Corpuscular Hemoglobin 22.5 PG Mean Corpuscular Hemoglobin 30.5 % Concent Red Cell Distribution Width 16.4 % Platelet Count 208 TH/MM3 Mean Platelet Volume 9.6 FL Neutrophils (%) (Auto) 54.3 % Lymphocytes (%) (Auto) 32.6 % Monocytes (%) (Auto) 10.6 % Eosinophils (%) (Auto) 2.2 % Basophils (%) (Auto) 0.3 % Neutrophils # (Auto) 2.7 TH/MM3 Lymphocytes # (Auto) 1.6 TH/MM3 Monocytes # (Auto) 0.5 TH/MM3 Eosinophils # (Auto) 0.1 TH/MM3 Basophils # (Auto) 0.0 TH/MM3 CBC Comment DIFF FINAL Differential Comment Sodium Level 140 MEQ/L Potassium Level 3.6 MEQ/L Chloride Level 110 MEQ/L Carbon Dioxide Level 23.8 MEQ/L Anion Gap 6 MEQ/L Blood Urea Nitrogen 10 MG/DL Creatinine 0.80 MG/DL Estimat Glomerular Filtration 106 ML/MIN Rate Random Glucose 78 MG/DL Calcium Level 8.5 MG/DL Total Creatine Kinase 116 U/L Creatine Kinase MB 0.7 NG/ML Troponin I LESS THAN 0.02 NG/ML Urine Color YELLOW Urine Turbidity HAZY Urine pH 5.5 Urine Specific [place] 1.029 Urine Protein TRACE mg/dL Urine Glucose (UA) NEG mg/dL Urine Ketones NEG mg/dL Urine Occult Blood NEG Urine Nitrite NEG Urine Bilirubin NEG Urine Urobilinogen LESS THAN 2.0 MG/DL Urine Leukocyte Esterase SMALL Urine RBC LESS THAN 1 /hpf Urine WBC 2 /hpf Urine Squamous Epithelial 7 /hpf Cells Urine Bacteria OCC /hpf Urine Hyaline Casts 4 /lpf Urine Mucus MOD /lpf Microscopic Urinalysis Comment CULT NOT INDICATED MDM Medical Decision Making Medical Screen Exam Complete: Yes Emergency Medical Condition: Yes Medical Record Reviewed: Yes Differential Diagnosis Differential diagnosis includes IN, angina, pericarditis, pleurisy, GERD, anxiety. Narrative Course I have reviewed the patient's electronic medical record. IV placed I reviewed the EKG which is normal I reviewed the chest x-ray which is normal Extended cardiac monitoring shows sinus rhythm without ectopy CBC is normal Metabolic profile is normal CK is normal Troponin is normal Coagulation studies are normal Patient has chest wall pain and will not require inpatient evaluation or urgent stress testing. Diagnosis Primary Impression: Musculoskeletal chest pain Additional Instructions: The patient was advised to follow up with their physician and return if they worsen. Med/Other Pt SpecificInfo: Other Disposition: 01 DISCHARGE HOME Condition: Stable Dane Alegre MD Aug 16, 2016 10:54
[2016-08-16 11:04] VITALS: BP 103/59
--- NOTE | 2016-08-16 11:19 | EKG ---
Date Performed: 08/16/2016 Time Performed: 08:13:03 PTAGE: 26 years EKG: Sinus rhythm NORMAL ECG PREVIOUS TRACING : 11/18/2014 08.16 Compared to prior tracing no significant change DOCTOR: Frederick Beaver Interpretating Date/Time 08/16/2016 11:18:19
== END 2016-08-16 11:07 | disposition home or self-care (01) ==
LOC: NEPE 07:56
DX: M79.1 Myalgia (principal)
CPT/HCPCS: 71010; 80048; 81001; 82550; 82552; 84484; 84703; 85025; 93005; 99285

== ENCOUNTER 2016-09-15 12:42 | Emergency (ER) | payer MEDICAID ==
[~2016-09-15] VITALS: Ht 175.3 cm; Wt 73.0 kg
[2016-09-15 12:44] VITALS: BP 109/67; PULSE 70; RESP 20; TEMP 98.1; O2SAT 100
[2016-09-15] MEDS ORDERED: ONDANSETRON ODT 4 MG TAB PO ONE (14:00)
[2016-09-15] MEDS ORDERED: KETOROLAC TROMETHAMINE 60 MG/2 ML (IM) VIAL IM ONE (14:00)
[2016-09-15] MEDS ORDERED: ONDA4TAB7 SL (14:02)
--- NOTE | 2016-09-15 14:02 | PD ---
HPI Chief Complaint: GI Complaint Time Seen by Provider: 13:34 Travel History International Travel<30 days: No Contact w/Intl Traveler<30days: No Traveled to known affect area: No History of Present Illness HPI To 26 year-old woman presents emergency department complaining of that she started getting some headache last night and then developed some stomach upset this morning. She took [id number] Excedrin which really help with her headache. She gets headaches but this is worse than she normally gets it. She otherwise has been feeling generally well and healthy. No other complaints. History Past Medical History Medical History: Denies Significant Hx LMP: Just had a baby and my period is irregular : 4 Para: 3 Past Surgical History Surgical History: No Previous Surgery Social History Alcohol Use: No Tobacco Use: No Allergies-Medications (Allergen,Severity, Reaction): Coded Allergies: No Known Allergies (Verified , 08/16/16) Reported Meds & Prescriptions Reported Meds & Active Scripts Active Oxycodone-Acetaminophen 5-325 mg Tab 1 Tab PO Q4H PRN Ibuprofen 600 Mg Tab 600 Mg PO Q6H PRN Reported [ Vitamin] DAILY Review of Systems Except as stated in HPI: all other systems reviewed are Neg Physical Exam Narrative GENERAL: Well-appearing 26 year-old woman, no acute distress. SKIN: Focused skin assessment warm/dry. HEAD: Atraumatic. Normocephalic. EYES: Pupils equal and round. No scleral icterus. No injection or drainage. ENT: No nasal bleeding or discharge. Mucous membranes pink and moist. NECK: Trachea midline. No JVD. CARDIOVASCULAR: Regular rate and rhythm. No murmur appreciated. RESPIRATORY: No accessory muscle use. Clear to auscultation. Breath sounds equal bilaterally. GASTROINTESTINAL: Abdomen soft, non-tender, nondistended. Hepatic and splenic margins not palpable. MUSCULOSKELETAL: No obvious deformities. No clubbing. No cyanosis. No edema. NEUROLOGICAL: Awake and alert. No obvious cranial nerve deficits. Motor grossly within normal limits. Normal speech. PSYCHIATRIC: Appropriate mood and affect; insight and judgment normal. Data Data Last Documented VS Vital Signs Date Time Temp Pulse Resp B/P Pulse Ox O2 Delivery O2 Flow Rate FiO2 09/15/16 12:44 98.1 70 20 109/67 100 Room Air Orders Ed Urine Pregnancytest Poc (09/15/16 13:46) Ketorolac Inj (Toradol Inj) (7/1/17 14:00) Ondansetron Odt (Zofran Odt) (09/15/16 14:00) MDM Medical Decision Making Medical Screen Exam Complete: Yes Emergency Medical Condition: Yes Differential Diagnosis Headache and upset stomach viral syndrome, migraine, other Narrative Course Medical decision making Is a 26 year-old woman presents emergent from feeling sick with the headache and some vomiting. She looks well. She is a benign abdominal exam. She wants a work note. I don't see any evidence of significant pathology. We'll check a test. She states she been getting worse headaches that she got her Implanon. Diagnosis Primary Impression: Headache Additional Instructions: Take Zofran if he needed for nausea or vomiting. Return to the emergency department for any worsening abdominal pain, worsening headache, or any other new or worsening symptoms. Med/Other Pt SpecificInfo: Prescription(s) given Scripts Ondansetron Odt 4 Mg Tab4 Mg SL Q8HR PRN (Nausea/Vomiting) #12 TAB Prov:Vinnie Morel MD 09/15/16 Disposition: 01 DISCHARGE HOME Condition: Stable Vinnie Morel MD Sep 15, 2016 14:02
== END 2016-09-15 14:14 | disposition home or self-care (01) ==
LOC: NEPD 12:42
DX: R51 Headache (principal)
CPT/HCPCS: 84703; 96372; 99284; J1885

== ENCOUNTER 2016-09-25 12:12 | Emergency (ER) | payer MEDICAID ==
[~2016-09-25] VITALS: Ht 175.3 cm; Wt 73.0 kg
[~2016-09-25 12:12] MED LIST changes: +ONDA4TAB7 SL
[2016-09-25 12:14] VITALS: BP 113/77; PULSE 82; RESP 18; TEMP 98.4; O2SAT 100
--- NOTE | 2016-09-25 12:22 | PD ---
Physical Exam Time Seen by Provider: 12:21 Narrative 26 y/o female here for evaluation of 2 days hx of lower back pain, nausea, vomiting. Vital signs reviewed. Seen at triage desk. Awaiting bed placement. Data Data Last Documented VS Vital Signs Date Time Temp Pulse Resp B/P Pulse Ox O2 Delivery O2 Flow Rate FiO2 09/25/16 12:14 98.4 82 18 113/77 100 Room Air [facility] Medical Record Reviewed: Yes Supervised Visit with GENNARO: [place] Sep 25, 2016 12:22
[2016-09-25] MEDS ORDERED: SODIUM CHLOR 0.9% 1000 ML INJ 1,000 ML IV SCH (12:36)
[2016-09-25 12:38] VITALS: RESP 16; O2SAT 99
[2016-09-25] MEDS ORDERED: SODIUM CHLORIDE 0.9% FLUSH 10 ML FLUSH IV FLUSH PRN (12:45)
[2016-09-25] MEDS ORDERED: KETOROLAC TROMETHAMINE 30 MG/ML (IVP) VIAL IVP ONE (12:45)
[2016-09-25] MEDS ORDERED: MORPHINE SULFATE 4 MG/ML INJ IV PUSH ONE (12:45)
[2016-09-25] MEDS ORDERED: ONDANSETRON HCL 4 MG/2 ML VIAL IVP ONE (12:45)
--- NOTE | 2016-09-25 12:46 | PD ---
HPI Chief Complaint: GI Complaint Time Seen by Provider: 12:27 Travel History International Travel<30 days: No Contact w/Intl Traveler<30days: No Traveled to known affect area: No History of Present Illness HPI The patient is a 26-year-old [place] female who presents emergency department for 2 days of lower back pain with nausea and one episode of vomiting. The patient's pain started yesterday, is located lower aspect of her back, is president worse, but is worse with certain types of movement. She also complains one episode of nausea with vomiting. The patient's last menstrual cycle was at the beginning of September, was abnormal with minimal spotting , however, notes abnormal menstrual cycle since she had an implanted control placed several months ago. The patient is AB 3. The patient denies any dysuria, frequency, urgency, vaginal discharge, or vaginal bleeding. She does note nausea with one episode of vomiting, denies any diarrhea or constipation. The patient's last normal bowel movement was yesterday. Symptoms are moderate, slightly exacerbated by activity, there are no current alleviating factors. She denies any assisted fever, chills, or sweats. PFSH Past Medical History Hx Anticoagulant Therapy: No Cardiovascular Problems: No Chemotherapy: No Cerebrovascular Accident: No Diabetes: No Diminished Hearing: No Genitourinary: Yes (uti) Respiratory: No Immunizations Current: Yes Tetanus Vaccination: < 5 Years Influenza Vaccination: Yes ?: Not LMP: 09/15/16 : 7 Para: 4 Miscarriage: 3 Past Surgical History Surgical History: No Previous Surgery Hysterectomy: No Social History Alcohol Use: No Tobacco Use: No Substance Use: No (PT DENIES) Allergies-Medications (Allergen,Severity, Reaction): Coded Allergies: No Known Allergies (Verified , 09/25/16) Reported Meds & Prescriptions Reported Meds & Active Scripts Active No Active Prescriptions or Reported Medications Review of Systems Except as stated in HPI: all other systems reviewed are Neg General / Constitutional: No: Fever Cardiovascular: No: Chest Pain or Discomfort Respiratory: No: Shortness of Breath Gastrointestinal: Positive: Nausea, Vomiting, No: Diarrhea, Abdominal Pain, Constipation, Changes in Bowel Habits Genitourinary: No: Urgency, Frequency, Dysuria, Pelvic Pain, Flank Pain Musculoskeletal: Positive: Pain, No: Weakness Neurologic: No: Paresthesia, Sensory Disturbance Physical Exam Narrative GENERAL: Awake, alert, pleasant 26-year-old female who appears her stated age and is in no acute respiratory distress. SKIN: Focused skin assessment warm/dry. HEAD: Atraumatic. Normocephalic. EYES: Pupils equal and round. No scleral icterus. No injection or drainage. ENT: No nasal bleeding or discharge. Mucous membranes pink and moist. NECK: Trachea midline. No JVD. CARDIOVASCULAR: Regular rate and rhythm. No murmur appreciated. RESPIRATORY: No accessory muscle use. Clear to auscultation. Breath sounds equal bilaterally. GASTROINTESTINAL: Abdomen soft, non-tender, nondistended. No suprapubic tenderness. No rebound tenderness, guarding, rigidity. Negative Mauro's. Negative McBurney's. Back: No CVA tenderness. Mild tenderness of the paravertebral muscles of the sacroiliac bilateral, pain was elicited with flexion of the thorax. MUSCULOSKELETAL: No obvious deformities. No clubbing. No cyanosis. No edema. NEUROLOGICAL: Awake and alert. No obvious cranial nerve deficits. Motor grossly within normal limits. Normal speech. PSYCHIATRIC: Appropriate mood and affect; insight and judgment normal. Data Data Last Documented VS Vital Signs Date Time Temp Pulse Resp B/P Pulse Ox O2 Delivery O2 Flow Rate FiO2 09/25/16 12:38 16 99 Room Air 09/25/16 12:14 98.4 82 113/77 Orders Complete Blood Count With Diff (09/25/16 12:36) Comprehensive Metabolic Panel (09/25/16 12:36) Lipase (09/25/16 12:36) Urinalysis - C+S If Indicated (09/25/16 12:36) Iv Access Insert/Monitor (09/25/16 12:36) Ecg Monitoring (09/25/16 12:36) Oximetry (09/25/16 12:36) Morphine Inj (Morphine Inj) (09/25/16 12:45) Ondansetron Inj (Zofran Inj) (09/25/16 12:45) Sodium Chlor 0.9% 1000 Ml Inj (Ns 1000 M (09/25/16 12:36) Sodium Chloride 0.9% Flush (Ns Flush) (09/25/16 12:45) Ketorolac Inj (Toradol Inj) (09/25/16 12:45) Ed Urine Pregnancytest Poc (09/25/16 12:36) Urine Culture (09/25/16 12:45) Ceftriaxone Inj (Rocephin Inj) (09/25/16 13:30) Labs Laboratory Tests Test 09/25/16 12:45 White Blood Count 8.0 TH/MM3 Red Blood Count 4.28 MIL/MM3 Hemoglobin 9.7 GM/DL Hematocrit 30.9 % Mean Corpuscular Volume 72.2 FL Mean Corpuscular Hemoglobin 22.7 PG Mean Corpuscular Hemoglobin 31.4 % Concent Red Cell Distribution Width 17.1 % Platelet Count 210 TH/MM3 Mean Platelet Volume 9.8 FL Neutrophils (%) (Auto) 77.7 % Lymphocytes (%) (Auto) 11.6 % Monocytes (%) (Auto) 9.8 % Eosinophils (%) (Auto) 0.7 % Basophils (%) (Auto) 0.2 % Neutrophils # (Auto) 6.2 TH/MM3 Lymphocytes # (Auto) 0.9 TH/MM3 Monocytes # (Auto) 0.8 TH/MM3 Eosinophils # (Auto) 0.1 TH/MM3 Basophils # (Auto) 0.0 TH/MM3 CBC Comment DIFF FINAL Differential Comment Urine Color YELLOW Urine Turbidity HAZY Urine pH 6.0 Urine Specific [place] 1.011 Urine Protein 30 mg/dL Urine Glucose (UA) NEG mg/dL Urine Ketones NEG mg/dL Urine Occult Blood SMALL Urine Nitrite POS Urine Bilirubin NEG Urine Urobilinogen LESS THAN 2.0 MG/DL Urine Leukocyte Esterase LARGE Urine RBC 3 /hpf Urine WBC /hpf Urine WBC Clumps OCC Urine Squamous Epithelial 2 /hpf Cells Urine Bacteria OCC /hpf Urine Mucus FEW /lpf Microscopic Urinalysis Comment CULTURE INDICATED Sodium Level 140 MEQ/L Potassium Level 3.2 MEQ/L Chloride Level 106 MEQ/L Carbon Dioxide Level 24.7 MEQ/L Anion Gap 9 MEQ/L Blood Urea Nitrogen 9 MG/DL Creatinine 0.95 MG/DL Estimat Glomerular Filtration 87 ML/MIN Rate Random Glucose 77 MG/DL Calcium Level 8.8 MG/DL Total Bilirubin 0.7 MG/DL Aspartate Amino Transf 12 U/L (AST/SGOT) Alanine Aminotransferase 16 U/L (ALT/SGPT) Alkaline Phosphatase 63 U/L Total Protein 8.0 GM/DL Albumin 3.8 GM/DL Lipase 77 U/L [facility] Medical Decision Making Medical Screen Exam Complete: Yes Emergency Medical Condition: Yes Medical Record Reviewed: Yes Interpretation(s) Laboratory Tests Test 09/25/16 12:45 White Blood Count 8.0 TH/MM3 Red Blood Count 4.28 MIL/MM3 Hemoglobin 9.7 GM/DL Hematocrit 30.9 % Mean Corpuscular Volume 72.2 FL Mean Corpuscular Hemoglobin 22.7 PG Mean Corpuscular Hemoglobin 31.4 % Concent Red Cell Distribution Width 17.1 % Platelet Count 210 TH/MM3 Mean Platelet Volume 9.8 FL Neutrophils (%) (Auto) 77.7 % Lymphocytes (%) (Auto) 11.6 % Monocytes (%) (Auto) 9.8 % Eosinophils (%) (Auto) 0.7 % Basophils (%) (Auto) 0.2 % Neutrophils # (Auto) 6.2 TH/MM3 Lymphocytes # (Auto) 0.9 TH/MM3 Monocytes # (Auto) 0.8 TH/MM3 Eosinophils # (Auto) 0.1 TH/MM3 Basophils # (Auto) 0.0 TH/MM3 CBC Comment DIFF FINAL Differential Comment Urine Color YELLOW Urine Turbidity HAZY Urine pH 6.0 Urine Specific [place] 1.011 Urine Protein 30 mg/dL Urine Glucose (UA) NEG mg/dL Urine Ketones NEG mg/dL Urine Occult Blood SMALL Urine Nitrite POS Urine Bilirubin NEG Urine Urobilinogen LESS THAN 2.0 MG/DL Urine Leukocyte Esterase LARGE Urine RBC 3 /hpf Urine WBC /hpf Urine WBC Clumps OCC Urine Squamous Epithelial 2 /hpf Cells Urine Bacteria OCC /hpf Urine Mucus FEW /lpf Microscopic Urinalysis Comment CULTURE INDICATED Sodium Level 140 MEQ/L Potassium Level 3.2 MEQ/L Chloride Level 106 MEQ/L Carbon Dioxide Level 24.7 MEQ/L Anion Gap 9 MEQ/L Blood Urea Nitrogen 9 MG/DL Creatinine 0.95 MG/DL Estimat Glomerular Filtration 87 ML/MIN Rate Random Glucose 77 MG/DL Calcium Level 8.8 MG/DL Total Bilirubin 0.7 MG/DL Aspartate Amino Transf 12 U/L (AST/SGOT) Alanine Aminotransferase 16 U/L (ALT/SGPT) Alkaline Phosphatase 63 U/L Total Protein 8.0 GM/DL Albumin 3.8 GM/DL Lipase 77 U/L Differential Diagnosis Differential diagnosis includes UTI, back strain, PID, cervicitis, ectopic , pancreatitis, constipation. Narrative Course IV was established, labs are drawn and sent, and the patient was placed on cardiac telemetry monitoring and continuous pulse oximetry monitoring. Bedside UA test was obtained and UA was sent to lab. The patient is a health clinician morphine, Zofran, Toradol, and IV fluids. The patient's white count is unremarkable, UA reveals findings consistent with UTI/pyelonephritis. Therefore, the patient was administered Rocephin 1 g intravenously. Urine test is negative. The patient will be provided Bactrim for 7 days and a work excuse for today. She is advised to follow-up with her primary physician and return if symptoms worsen or progress. The patient's potassium was 3.2, was replaced orally. Diagnosis Primary Impression: Pyelonephritis Additional Impression: Hypokalemia Patient Instructions: General Instructions Med/Other Pt SpecificInfo: Prescription(s) given Scripts Ibuprofen 600 Mg Ixp712 Mg PO Q6H PRN (Pain/Inflammation) #20 TAB Ref 0 Prov:Perico Carrillo MD 09/25/16 Sulfamethoxazole-Trimethoprim (Bactrim DS)800-160 Mg Tab1 Tab PO BID #14 TAB Ref 0 Prov:Perico Carrillo MD 09/25/16 Disposition: 01 DISCHARGE HOME Condition: Stable Perico Carrillo MD Sep 25, 2016 12:46
[2016-09-25 13:07] LABS: AUTOMATED NEUTROPHIL # 6.2 TH/MM3 (1.8-7.7); BASOPHIL % 0.2 % (0.0-2.0); EOSINOPHIL # 0.1 TH/MM3 (0-0.4); EOSINOPHIL % 0.7 % (0.0-4.0); HEMATOCRIT 30.9 % (35.0-46.0); HEMO FLAGS DIFF FINAL; LYMPH % 11.6 % (9.0-44.0); LYMPHOCYTE # 0.9 TH/MM3 (1.0-4.8); MEAN CELL VOLUME 72.2 FL (80.0-100.0); MEAN CORPUSCULAR HEMOGLOBIN 22.7 PG (27.0-34.0); MEAN CORPUSCULAR HGB CONC 31.4 % (32.0-36.0); MONO % 9.8 % (0.0-8.0); NEUT % 77.7 % (16.0-70.0); PLATELET COUNT 210 TH/MM3 (150-450); RED BLOOD COUNT 4.28 MIL/MM3 (4.00-5.30); RED CELL DISTRIBUTION WIDTH 17.1 % (11.6-17.2)
[2016-09-25 13:15] LABS: BACTERIA, URINE OCC /hpf; BLOOD, URINE SMALL (NEG); COMMENT (UR) CULTURE INDICATED; CULTURE IF INDICATED CULTURE INDICATED; GLUCOSE,URINE NEG (NEG); KETONE, URINE NEG (NEG); MUCUS URINE FEW /lpf (OCC); SQUAMOUS EPITHELIAL CELL URINE 2 /hpf (0-5); URINE COLOR YELLOW (YELLW/STRAW)
[2016-09-25 13:16] LABS: NITRITE,URINE POS (NEG)
[2016-09-25] MEDS ORDERED: cefTRIAXone INJ 1,000 MG in SODIUM CHLORIDE 0.9% INJ 25 ML IV ONE (13:30)
[2016-09-25 13:39] LABS: ANION GAP 9 MEQ/L (5-15); AST (GOT) 12 U/L (15-37); BICARBONATE 24.7 MEQ/L (21.0-32.0); BLOOD UREA NITROGEN 9 MG/DL (7-18); CHLORIDE 106 MEQ/L (98-107); GLOMERULAR FILTRATION RATE 87 ML/MIN (>89); POTASSIUM 3.2 MEQ/L (3.5-5.1); SODIUM (NA) 140 MEQ/L (136-145)
[2016-09-25 13:43] LABS: ALKALINE PHOSPHATASE 63 U/L (45-117); ALT (GPT) 16 U/L (10-53); TOTAL BILIRUBIN ADULT 0.7 MG/DL (0.2-1.0)
[2016-09-25] MEDS ORDERED: BACT800T5 PO (14:01)
[2016-09-25] MEDS ORDERED: IBUP-232 PO (14:01)
== END 2016-09-25 14:13 | disposition home or self-care (01) ==
LOC: NEPD 12:12
DX: N12 Tubulo-interstitial nephritis, not specified as acute or chronic (principal); B96.20 Unspecified Escherichia coli [E. coli] as the cause of diseases classified elsewhere; E87.6 Hypokalemia
CPT/HCPCS: 80053; 81001; 83690; 84703; 85025; 87077; 87086; 87186; 96361; 96365; 96375; 99284; J0696; J1885; J2270; J2405; J7030